=== PATIENT | female | born 1990 | race Caucasian/White ===

== ENCOUNTER 2018-10-31 21:16 | Emergency (ER) | payer OTHER ==
[~2018-10-31] VITALS: Ht 162.6 cm; Wt 60.3 kg
[2018-10-31 22:10] VITALS: Ht 162.6 cm; Wt 60.3 kg
[2018-10-31 23:34] LABS: BASOPHIL % 0.5 % (0-2); PLATELET COUNT 286 x10^3mcL (130-400); RED CELL DISTRIBUTION WIDTH 12.6 % (11.5-14.5)
[2018-10-31 23:42] LABS: CALCIUM 8.2 mg/dL (8.5-10.1); CARBON DIOXIDE 26.3 mmol/L (21-32); CHLORIDE SERUM 105 mmol/L (98-107); CREATININE SERUM 0.7 mg/dL (0.6-1.0); GFR1 > 60 mL/min; GLUCOSE SERUM 88 mg/dL (74-106); POTASSIUM SERUM 3.5 mmol/L (3.5-5.1); SODIUM SERUM 143 mmol/L (136-145)
[2018-10-31 23:55] LABS: FREE T4 0.94 ng/dL (0.76-1.46); FREE THYROXINE INDEX 3.1 ug/dL (1.4-4.5); T4(THYROXINE) 11.6 ug/dL (4.7-13.3)
[2018-10-31 23:57] LABS: ALBUMIN 4.1 g/dL (3.4-5.0); ALKALINE PHOSPHATASE 96 U/L (46-116); ALT/SGPT 41 U/L (14-59); AST/SGOT 19 U/L (15-37); BILIRUBIN TOTAL 0.2 mg/dL (0.20-1.00); CHOLESTEROL 191 mg/dL (<200); CHOLESTEROL/HDL RATIO 3.7; HDL CHOLESTEROL 52 mg/dL (40-60); TRIGLYCERIDES 99 mg/dL (<150)
[2018-10-31 23:58] LABS: TOTAL PROTEIN, SERUM 8.4 g/dL (6.4-8.2)
[2018-11-01 00:39] VITALS: BP 111/74
[2018-11-01 00:40] LABS: T3 TOTAL 1.47 ng/mL
== END 2018-11-01 00:39 | disposition home or self-care (01) ==
LOC: ED 21:16
PROVIDERS: Specialist
DX: R20.2 Paresthesia of skin (principal); R42 Dizziness and giddiness; H57.89 Other specified disorders of eye and adnexa
CPT/HCPCS: 36415; 84439